=== PATIENT | male | born 1940 | race Caucasian/White ===

== ENCOUNTER 2018-04-16 07:30 | Day surgery (SDC) | payer MEDICARE, OTHER ==
[2018-04-16] MEDS ORDERED: Sodium Chloride 0.9% 10 ML Syringe FLUSH PRN (08:00)
--- NOTE | 2018-04-16 11:45 | OR ---
DATE OF PROCEDURE: 04/16/2018 POSTOPERATIVE CARE: Postoperative care will be provided mainly at the [address] [place] [address] [facility] in conjunction with [facility]. PREOPERATIVE DIAGNOSIS: Cataract, left eye. POSTOPERATIVE DIAGNOSIS: Cataract, left eye. PROCEDURE: Phacoemulsification with intraocular lens placement, left eye. ANESTHESIA: Topical and intracameral. ESTIMATED BLOOD LOSS: Minimal. COMPLICATIONS: None. PATHOLOGY SPECIMENS: None. SURGICAL FINDINGS: None. INDICATION FOR PROCEDURE: The patient is a 77-year-old male with history of a visually significant cataract in the left eye, which interfered with activities of daily living. This consisted of a nuclear sclerosis cataract. Following careful discussion of the risks, benefits and alternatives to cataract extraction with intraocular lens placement including blindness and , the patient elected to proceed, and informed, written consent was obtained prior to the procedure. DESCRIPTION OF THE PROCEDURE: The patient was previously identified, and a herbie placed above the left eye. All sources, including the patient, indicated that the left eye was the correct eye. The patient was subsequently taken to the operating room where standard monitors were applied. The patient was then prepped and draped in the usual sterile fashion for ophthalmic surgery. Attention was first directed at the 12 o'clock position where a paracentesis port was fashioned. Shugar solution followed by Viscoat was instilled into the eye. Attention was then directed to the 8:30 position where a triplanar incision was made in a near-clear manner using a keratome. A continuous capsulorrhexis was then made using a combination of the cystotome and Utrata forceps. Hydrodissection was achieved using a balanced salt solution, and the lens rotated nicely. Phacoemulsification was then done using a modified [id number] technique without complication. Phaco time was 6.95 CDE. The remaining cortex was removed using the irrigation/aspiration handpiece. Provisc was then instilled into the eye. A Technis lens, model CR1856, at 24.0 diopters was then placed in the capsular bag using an [place] injector. The remaining viscoelastic was removed using the irrigation/aspiration forceps. All wounds were then checked and found to be watertight. The lid speculum and drapes were removed. Maxitrol ointment was placed in the patient's left eye, and the eye was shielded. The patient tolerated the procedure well. The patient was instructed to follow up tomorrow. All needle and sponge counts were correct at the end of the procedure. There were no surgical findings. Hilary Hess MD /[id number]
== END 2018-04-16 09:30 | disposition home or self-care (01) ==
LOC: JP.SDS 07:30
PROVIDERS: ATTEND Ophthalmology
DX: H25.12 Age-related nuclear cataract, left eye (principal); F41.9 Anxiety disorder, unspecified; Z88.1 Allergy status to other antibiotic agents
CPT/HCPCS: 66984; J7050

== ENCOUNTER 2019-02-11 07:37 | Day surgery (SDC) | payer MEDICARE, OTHER ==
[2019-02-11] MEDS ORDERED: Lactated Ringers 1,000 ML IV SCH (08:15)
[2019-02-11] MEDS ORDERED: Sodium Chloride 0.9% 1,000 ML IV SCH (08:15)
[2019-02-11] MEDS ORDERED: fentaNYL 100 MCG/2 ML SDV ONE (08:25)
[2019-02-11] MEDS ORDERED: Propofol 200 MG/20 ML SDV ONE (08:25)
--- NOTE | 2019-02-11 11:09 | OR ---
DATE OF PROCEDURE: 02/11/2019 PROCEDURE: Colonoscopy. FINDINGS: Sigmoid colon polyp, completely removed using hot snare. COMPLICATIONS: None. LEAD CARPENTER: None. ANESTHESIA: MAC. PREOPERATIVE DIAGNOSIS: Positive Cologuard. POSTOPERATIVE DIAGNOSIS: Positive Cologuard. PROCEDURE IN DETAIL: Patient was placed in the left lateral decubitus position. Digital rectal exam was performed without abnormality. Scope was introduced and advanced atraumatically to the ileocecal valve. The scope was brought back to the ascending, transverse, descending colon, and retroflexed. The prep was marginal with solid and liquid stool remaining. In the sigmoid colon, an approximately 8 mm polyp was identified and completely removed using snare. No abnormalities on retroflection. The patient tolerated the procedure well. Of note, the patient and I did discuss the postprocedure ramifications of the poor colon prep. He has elected to not perform . Ari Elizondo MD /[id number]
== END 2019-02-11 11:00 | disposition home or self-care (01) ==
LOC: JP.SDS 07:37
PROVIDERS: ATTEND Surgery
DX: D12.5 Benign neoplasm of sigmoid colon (principal)
CPT/HCPCS: 45385; J2704; J3010; J7030; 88305

== ENCOUNTER 2021-02-17 13:54 | Inpatient (IN) | payer MEDICARE, OTHER ==
[2021-02-17] MEDS ORDERED: Albuterol 0.083% 2.5 MG/3 ML Neb Soln NEB ONE (15:08)
--- NOTE | 2021-02-17 15:08 | EDM.PDOC ---
<Peyton Lauren - Last Filed: 02/17/21 17:49> ED HPI GENERAL MEDICAL PROBLEM - General Chief Complaint: Respiratory Problem Stated Complaint: DIFFICULTY BREATHING, COUGHING Time Seen by Provider: 02/17/21 15:07 Source of Information: Reports: Patient History Limitations: Reports: No Limitations - History of Present Illness INITIAL COMMENTS - FREE TEXT/NARRATIVE: pt started having a cough about 2-3 days ago. He has been coughing alot and raising thick sputum. Onset: Gradual, Other ( started 3 days ago. ) Duration: Hour(s): Location: Reports: Chest Associated Symptoms: Reports: Cough, Shortness of Breath Lower Back Pain Score (Numeric/FACES): 7 - Related Data Allergies Allergy/AdvReac Type Severity Reaction Status Date / Time erythromycin base Allergy Unknown Cannot Verified 02/10/19 07:57 [Erythromycin Base] Remember Home Meds: Home Meds Gabapentin 900 mg PO TID 07/28/13 [History] Morphine Sulfate [Morphine Sulfate ER] 30 mg PO Q12H 07/28/13 [History] Zolpidem [Ambien] 10 mg PO BEDTIME PRN 10/29/13 [History] Carboxymethylcellulose Sodium [Refresh Plus 0.5%] 1 drop EYEBOTH ASDIRECTED 04/13/18 [History] Cholecalciferol (Vitamin D3) [Vitamin D3] 1,000 unit PO DAILY 04/13/18 [History] Moxifloxacin [Vigamox 0.5% Ophth Soln] 1 drop EYELF QID 04/13/18 [History] Multivitamin [Multiple Vitamins] 1 tab PO DAILY 04/13/18 [History] [place]-3 Fatty Acids [[place]-3] 100 mg PO DAILY 04/13/18 [History] Prednisolone Acetate/Pf [Prednisolone Acet 1% Eye Drop] 1 drop EYELF QID 04/13/18 [History] Vitamin E 100 units PO DAILY 04/13/18 [History] oxyCODONE 10 mg PO Q6H PRN 04/13/18 [History] Sennosides/Docusate Sodium [Senna-S] 1 tab PO DAILY 02/10/19 [History] Past Medical History HEENT History: Reports: Impaired Vision Gastrointestinal History: Reports: Cholelithiasis, Colon Polyp Genitourinary History: Reports: Renal Calculus Musculoskeletal History: Reports: Back Pain, Chronic, Fracture Neurological History: Reports: Concussion, Neuropathy, Peripheral Other Neuro History: LEFT LEG RADIATING PAIN FROM BACK - Infectious Disease History Infectious Disease History: Reports: Chicken Pox - Past Surgical History HEENT Surgical History: Reports: Cataract Surgery, Tonsillectomy GI Surgical History: Reports: Cholecystectomy, Colonoscopy, EGD Male Surgical History: Reports: Lithotripsy (ESWL) Neurological Surgical History: Reports: Other (See Below) Other Neurological Surgeries/Procedures: Internal lumbar stimulator Musculoskeletal Surgical History: Reports: Arthroscopic Knee, Other (See Below) Other Musculoskeletal Surgeries/Procedures:: nerve stimulator implanted in back for back and leg pain Social & Family History - Tobacco Use Tobacco Use Status *Q: Never Tobacco User - Caffeine Use Caffeine Use: Reports: None Other Caffeine Use: 3 CUPS ED ROS GENERAL - Review of Systems Review Of Systems: See Below Constitutional: Reports: Fatigue HEENT: Reports: No Symptoms Respiratory: Reports: Shortness of Breath, Cough, Other ( ALOT OF DIFFICULTY BREATHING LAST NITE. ) Cardiovascular: Reports: Other (PT HAS NOS CHEST PAIN. hE IS COUGHING UP A FAIR AMOUNT OF MUCOUS. ) Endocrine: Reports: No Symptoms GI/Abdominal: Reports: No Symptoms : Reports: No Symptoms Musculoskeletal: Reports: No Symptoms Skin: Reports: No Symptoms Neurological: Reports: No Symptoms Psychiatric: Reports: Anxiety ED EXAM, GENERAL - Physical Exam Exam: See Below Free Text/Narrative:: PT ARRIVED WITH A 3 DAY HISTORY OF BEING SOB AND COUGHING AND RASING ALOT OF SPUTUM. hE WAS VERY SOB LAST NITE. Exam Limited By: No Limitations General Appearance: Alert, Mild Distress, Other (PT DID HAVE O2 SATS IN THE MID 80S. ) Ears: Normal TMs Nose: Normal Inspection Throat/Mouth: Normal Inspection Head: Atraumatic Neck: Normal Inspection Respiratory/Chest: Decreased Breath Sounds, Other (O2 SATS IN THE MID 80S. ) Cardiovascular: Regular Rate, Rhythm GI/Abdominal: Soft, Non-Tender (Male) Exam: Deferred Rectal (Males) Exam: Deferred Back Exam: Normal Inspection Extremities: Normal Inspection, Other (NO SIG INCREASE IN SWELLING IN ANKLES. ) Neurological: Alert, Oriented, Normal Cognition Course - Re-Assessments/Exams Free Text/Narrative Re-Assessment/Exam: 02/17/21 17:55 PT IS ABLE TO MAINTIN O2 SATS WITH 2 LITERS OTHERWISE HIS SATS ARE IN THE MID 80S. hE HAS NO PREVIOS HISTORY OF RESP SYMPTOMS. hIS CHEST XRAY SHOWS A POSSIBLE SMALL INFILTRATE. hE HAD A NEG QUICK COVID tHE OTHER IS BEING RUN. hIS WBC IS LOW. hIS DDIMER HAS MILD ELEVATION. hIS CRP IS HIGH. pT HAS BEEN VACINATED FOR COVID. 02/17/21 17:57 Departure - Departure Disposition: Admitted As Inpatient 68 Clinical Impression: Bronchopneumonia due to bacteria, Hypoxia - Discharge Information Referrals: Erasmo Almaguer MD [Primary Care Provider] - Forms: ED Department Discharge Sepsis Event Note (ED) - Evaluation Sepsis Screening Result: No Definite Risk <Adriano Chaparro - Last Filed: 02/17/21 20:51> Course - Vital Signs Last Recorded V/S: Last Vital Signs Temp 36.8 C 02/17/21 14:22 Pulse 76 02/17/21 20:32 Resp 12 02/17/21 20:32 BP 145/67 H 02/17/21 20:32 Pulse Ox 90 L 02/17/21 20:32 - Orders/Labs/Meds Orders: Active Orders 24 hr Category Date Time Status RT Aerosol Therapy [RC] ASDIRECTED Care 02/17/21 15:08 Active Chest 2V [CR] Stat Exams 02/17/21 15:04 Taken Iopamidol [Isovue-370 (76%)] Med 02/17/21 19:15 Active 100 ml IV . DIRECTED Sodium Chloride 0.9% [Normal Saline] 100 ml Med 02/17/21 19:15 Active IV ASDIRECTED Isolation [COMM] Stat Oth 02/17/21 15:06 Ordered Isolation [COMM] Stat Oth 02/17/21 17:41 Ordered Medication Orders Sodium Chloride (Normal Saline) 100 mls @ 4 mls/sec IV ASDIRECTED DAVE Last Admin: 02/17/21 19:32 Dose: 4 mls/sec Documented by: HARESH Iopamidol (Iopamidol 755 Mg/Ml 100 Ml Bottle) 100 ml IV . DIRECTED DAVE Last Admin: 02/17/21 19:32 Dose: 100 ml Documented by: HARESH Labs: Laboratory Tests 02/17/21 02/17/21 02/17/21 Range/Units 15:19 15:19 15:19 WBC 3.9 L (4.5-11.0) K/uL RBC 4.31 (4.30-5.90) M/uL Hgb 13.2 (12.0-15.0) g/dL Hct 39.4 L (40.0-54.0) % MCV 91 (80-98) fL MCH 31 (27-31) pg MCHC 34 (32-36) % Plt Count 131 L (150-400) K/uL Neut % (Auto) 63.7 (36-66) % Lymph % (Auto) 18.8 L (24-44) % Hale % (Auto) 17.0 H (2-6) % Eos % (Auto) 0.0 L (2-4) % Baso % (Auto) 0.5 (0-1) % D-Dimer, Quantitative (0.0-500.0) ng/mL Sodium 135 L (140-148) mmol/L Potassium 4.7 (3.6-5.2) mmol/L Chloride 99 L (100-108) mmol/L Carbon Dioxide 28 (21-32) mmol/L Anion Gap 12.7 (5.0-14.0) mmol/L BUN 12 (7-18) mg/dL Creatinine 1.0 (0.8-1.3) mg/dL Est Cr Clr Drug Dosing 72.76 mL/min Estimated GFR (MDRD) > 60 (>60) Glucose 104 (74-106) mg/dL Calcium 8.1 L (8.5-10.1) mg/dL Total Bilirubin 0.6 (0.2-1.0) mg/dL AST 26 (15-37) U/L ALT 24 (12-78) U/L Alkaline Phosphatase 76 (46-116) U/L C-Reactive Protein (0.0-0.3) mg/dL NT-Pro-B Natriuret Pep 266 (5-450) pg/mL Total Protein 6.7 (6.4-8.2) g/dL Albumin 3.2 L (3.4-5.0) g/dL Globulin 3.5 (2.3-3.5) g/dL Albumin/Globulin Ratio 0.9 L (1.2-2.2) Procalcitonin ng/mL Influenza Type A RNA (NEGATIVE) RSV RNA (INAAT) (NEGATIVE) Influenza Type B RNA (NEGATIVE) SARS-CoV-2 RNA (OTF) (NEGATIVE) SARS CoV-2 RNA Rapid OTF 02/17/21 02/17/21 02/17/21 Range/Units 17:04 17:14 17:16 WBC (4.5-11.0) K/uL RBC (4.30-5.90) M/uL Hgb (12.0-15.0) g/dL Hct (40.0-54.0) % MCV (80-98) fL MCH (27-31) pg MCHC (32-36) % Plt Count (150-400) K/uL Neut % (Auto) (36-66) % Lymph % (Auto) (24-44) % Hale % (Auto) (2-6) % Eos % (Auto) (2-4) % Baso % (Auto) (0-1) % D-Dimer, Quantitative 747.76 H (0.0-500.0) ng/mL Sodium (140-148) mmol/L Potassium (3.6-5.2) mmol/L Chloride (100-108) mmol/L Carbon Dioxide (21-32) mmol/L Anion Gap (5.0-14.0) mmol/L BUN (7-18) mg/dL Creatinine (0.8-1.3) mg/dL Est Cr Clr Drug Dosing mL/min Estimated GFR (MDRD) (>60) Glucose (74-106) mg/dL Calcium (8.5-10.1) mg/dL Total Bilirubin (0.2-1.0) mg/dL AST (15-37) U/L ALT (12-78) U/L Alkaline Phosphatase (46-116) U/L C-Reactive Protein 3.11 H (0.0-0.3) mg/dL NT-Pro-B Natriuret Pep (5-450) pg/mL Total Protein (6.4-8.2) g/dL Albumin (3.4-5.0) g/dL Globulin (2.3-3.5) g/dL Albumin/Globulin Ratio (1.2-2.2) Procalcitonin ng/mL Influenza Type A RNA (NEGATIVE) RSV RNA (INAAT) (NEGATIVE) Influenza Type B RNA (NEGATIVE) SARS-CoV-2 RNA (OTF) (NEGATIVE) SARS CoV-2 RNA Rapid OTF Negative 02/17/21 02/17/21 Range/Units 17:43 18:05 WBC (4.5-11.0) K/uL RBC (4.30-5.90) M/uL Hgb (12.0-15.0) g/dL Hct (40.0-54.0) % MCV (80-98) fL MCH (27-31) pg MCHC (32-36) % Plt Count (150-400) K/uL Neut % (Auto) (36-66) % Lymph % (Auto) (24-44) % Hale % (Auto) (2-6) % Eos % (Auto) (2-4) % Baso % (Auto) (0-1) % D-Dimer, Quantitative (0.0-500.0) ng/mL Sodium (140-148) mmol/L Potassium (3.6-5.2) mmol/L Chloride (100-108) mmol/L Carbon Dioxide (21-32) mmol/L Anion Gap (5.0-14.0) mmol/L BUN (7-18) mg/dL Creatinine (0.8-1.3) mg/dL Est Cr Clr Drug Dosing mL/min Estimated GFR (MDRD) (>60) Glucose (74-106) mg/dL Calcium (8.5-10.1) mg/dL Total Bilirubin (0.2-1.0) mg/dL AST (15-37) U/L ALT (12-78) U/L Alkaline Phosphatase (46-116) U/L C-Reactive Protein (0.0-0.3) mg/dL NT-Pro-B Natriuret Pep (5-450) pg/mL Total Protein (6.4-8.2) g/dL Albumin (3.4-5.0) g/dL Globulin (2.3-3.5) g/dL Albumin/Globulin Ratio (1.2-2.2) Procalcitonin < 0.05 ng/mL Influenza Type A RNA Negative (NEGATIVE) RSV RNA (INAAT) Negative (NEGATIVE) Influenza Type B RNA Negative (NEGATIVE) SARS-CoV-2 RNA (OTF) Negative (NEGATIVE) SARS CoV-2 RNA Rapid OTF Meds: Medications Generic Name Dose Route Start Last Admin Trade Name Freq PRN Reason Stop Dose Admin Sodium Chloride 100 mls @ 4 mls/sec 02/17/21 19:15 02/17/21 19:32 Normal Saline IV 4 mls/sec ASDIRECTED DAVE Administration Iopamidol 100 ml 02/17/21 19:15 02/17/21 19:32 Iopamidol 755 Mg/Ml 100 Ml Bottle IV 100 ml . DIRECTED DAVE Administration Discontinued Medications Generic Name Dose Route Start Last Admin Trade Name Mary PRN Reason Stop Dose Admin Albuterol 2.5 mg 02/17/21 15:08 02/17/21 15:24 Albuterol 0.083% 2.5 Mg/3 Ml Neb Soln NEB 02/17/21 15:09 2.5 mg ONETIME ONE Administration Morphine Sulfate 30 mg 02/17/21 18:19 02/17/21 18:31 Morphine 15 Mg Tab PO 02/17/21 18:20 30 mg ONETIME STA Administration Oxycodone HCl 10 mg 02/17/21 17:42 02/17/21 18:07 Oxycodone 5 Mg Tab PO 02/17/21 17:43 10 mg ONETIME ONE Administration - Radiology Interpretation Free Text/Narrative:: CT angiogram of the chest was reviewed as well as the report. There is bibasilar bronchial wall thickening in the bases with pulmonary infiltrates versus atelectasis. This is consistent with an acute bronchopneumonia. - Re-Assessments/Exams Free Text/Narrative Re-Assessment/Exam: 02/17/21 19:40 second Covid test is negative which is the quadrivalent Covid test. With elevated D-dimer, we will proceed with a CT angiogram of the chest to evaluate for pulmonary emboli. 02/17/21 20:49 CT angiogram of the chest shows bibasilar pulmonary infiltrates and thickening of the bronchials consistent with acute bronchopneumonia. We will start patient on antibiotics. He has continued to require oxygen to maintain saturations above 90% so was likely going to need hospitalization until this improves. We will initiate antibiotics with Levaquin 750 mg IV. I will also obtain blood cultures. I discussed the case with Patito Vences CNP who will arrange for the patient to be admitted. Departure - Departure Time of Disposition: 20:49 Sepsis Event Note (ED) - Focused Exam Vital Signs: Vital Signs Temp Pulse Resp BP Pulse Ox 02/17/21 20:32 76 12 145/67 H 90 L 02/17/21 18:58 75 158/99 H 91 L 02/17/21 17:11 77 90 L 02/17/21 15:42 72 16 131/82 87 L 02/17/21 14:22 36.8 C 75 15 157/78 H 91 L - My Orders Last 24 Hours: My Active Orders 02/17/21 19:15 Iopamidol [Isovue-370 (76%)] 100 ml IV . DIRECTED Sodium Chloride 0.9% [Normal Saline] 100 ml IV ASDIRECTED - Assessment/Plan Last 24 Hours: My Active Orders 02/17/21 19:15 Iopamidol [Isovue-370 (76%)] 100 ml IV . DIRECTED Sodium Chloride 0.9% [Normal Saline] 100 ml IV ASDIRECTED
[2021-02-17] MEDS ORDERED: oxyCODONE 5 MG Tab PO ONE (17:42)
[2021-02-17] MEDS ORDERED: Morphine 15 MG Tab PO STA (18:19)
[2021-02-17 18:24] LABS: CORONAVIRUS COVID-19 NAA NEGATIVE (NEGATIVE)
[2021-02-17] MEDS ORDERED: Sodium Chloride 0.9% 100 ML IV SCH (19:15)
[2021-02-17] MEDS ORDERED: Iopamidol 755 Mg/ML 100 ML Bottle IV SCH (19:15)
--- NOTE | 2021-02-17 20:36 | CRLCT ---
For Patients: As a result of the Cures Act, medical imaging exams and procedure reports are released immediately into your electronic medical record. You may view this report before your referring provider. If you have questions, please contact your health care provider. Indication: Hypoxia dyspnea Technique: Contrast-enhanced CT PE with 100 mL Isovue 370 Comparison: No comparison Findings: Normal caliber thoracic aorta. No pulmonary emboli. Heart size normal no mediastinal or hilar adenopathy. No pericardial effusion. Tiny pleural effusions. Basilar atelectasis bronchial thickening mild patchy opacities right lower lobe could reflect atelectasis or infiltrate. Moderate hiatal hernia. Fatty liver. Low-density lesions in the left hepatic lobe probably reflect cysts. Cholecystectomy. Biliary dilatation. Trace amount of air in the left hepatic lobe probably reflecting pneumobilia. Impression: 1. No pulmonary emboli. 2. Minimal right basilar patchy opacities could represent atelectasis or infiltrate. Bibasilar bronchial wall thickening Please note that all CT scans at this facility use dose modulation, iterative reconstruction, and/or weight-based dosing when appropriate to reduce radiation dose to as low as reasonably achievable. Dictated by Brynn Levin MD @ 02/17/2021 8:33:[address] Brynn Levin @ Feb 17 2021 8:33PM
[2021-02-17] MEDS ORDERED: Levofloxacin/Dextrose 5%-Water 750 MG in Premix Bag 1 BAG IV ONE (21:02)
--- NOTE | 2021-02-17 21:32 | CRLCR ---
For Patients: As a result of the Cures Act, medical imaging exams and procedure reports are released immediately into your electronic medical record. You may view this report before your referring provider. If you have questions, please contact your health care provider. INDICATION: Cough, shortness of breath TECHNIQUE: Chest 2 views. COMPARISON: Chest x-ray 10/28/2013 FINDINGS: The heart is normal in size. The pulmonary vasculature is within normal limits. The lungs are clear without focal consolidation, pleural effusion or pneumothorax. There are mild degenerative changes of the thoracic spine. There is a nerve stimulator device which terminates over the mid thoracic spine. IMPRESSION: No acute process. Dictated by Raquel Vargas MD @ 02/17/2021 9:31:00 PM Dictated by: Raquel Vargas MD @ 02/17/2021 21:31:11 (Electronically Signed)
--- NOTE | 2021-02-17 22:58 | PCM.HP.2 ---
H&P History of Present Illness - General Date of Service: 02/17/21 Admit Problem/Dx: Admission Diagnosis/Problem Admission Diagnosis/Problem Pneumonia Source of Information: Patient, Provider History Limitations: Reports: No Limitations - History of Present Illness Initial Comments - Free Text/Narative: chief complaint: difficulty breathing, shortness of breath. This is a 80 year old male presents to the ER with shortness of breath. Oxygen saturation upon arrival were low 80% on room air. Now oxygen levels are in the low 90% with 2 liter NC. Onset of symptoms for the past 2 to 3 days. chills, shortness of breath, fatigue, lack of appetite- last meal was last night. Onset of Symptoms: Reports: Gradual Symptom Onset Date: 02/14/21 Duration of Symptoms: Reports: Getting Worse Location: Reports: Generalized Quality: Reports: Other (shortness of breath, denies painful cough) Severity: Severe Improves with: Reports: Other (oxygen therapy) Worsens with: Reports: None Associated Symptoms: Reports: Cough, Fever/Chills (chills without fever), Loss of Appetite, Malaise, Shortness of Breath, Weakness Lower Back Pain Score (Numeric/FACES): 7 - Related Data Allergies/Adverse Reactions: Allergies Allergy/AdvReac Type Severity Reaction Status Date / Time erythromycin base Allergy Unknown Cannot Verified 02/10/19 07:57 [Erythromycin Base] Remember Home Medications: Home Meds Gabapentin 900 mg PO TID 07/28/13 [History] Morphine Sulfate [Morphine Sulfate ER] 30 mg PO Q12H 07/28/13 [History] Zolpidem [Ambien] 10 mg PO BEDTIME PRN 10/29/13 [History] Carboxymethylcellulose Sodium [Refresh Plus 0.5%] 1 drop EYEBOTH ASDIRECTED [History] Cholecalciferol (Vitamin D3) [Vitamin D3] 1,000 unit PO DAILY 04/13/18 [History] Moxifloxacin [Vigamox 0.5% Ophth Soln] 1 drop EYELF QID 04/13/18 [History] Multivitamin [Multiple Vitamins] 1 tab PO DAILY 04/13/18 [History] Schofield-3 Fatty Acids [Schofield-3] 100 mg PO DAILY 04/13/18 [History] Prednisolone Acetate/Pf [Prednisolone Acet 1% Eye Drop] 1 drop EYELF QID 04/13/18 [History] Vitamin E 100 units PO DAILY 04/13/18 [History] oxyCODONE 10 mg PO Q6H PRN 04/13/18 [History] Sennosides/Docusate Sodium [Senna-S] 1 tab PO DAILY 02/10/19 [History] Past Medical History HEENT History: Reports: Impaired Vision Gastrointestinal History: Reports: Cholelithiasis, Colon Polyp Genitourinary History: Reports: Renal Calculus Musculoskeletal History: Reports: Back Pain, Chronic, Fracture Neurological History: Reports: Concussion, Neuropathy, Peripheral Other Neuro History: LEFT LEG RADIATING PAIN FROM BACK - Infectious Disease History Infectious Disease History: Reports: Chicken Pox - Past Surgical History HEENT Surgical History: Reports: Cataract Surgery, Tonsillectomy GI Surgical History: Reports: Cholecystectomy, Colonoscopy, EGD Male Surgical History: Reports: Lithotripsy (ESWL) Neurological Surgical History: Reports: Other (See Below) Other Neurological Surgeries/Procedures: Internal lumbar stimulator Musculoskeletal Surgical History: Reports: Arthroscopic Knee, Other (See Below) Other Musculoskeletal Surgeries/Procedures:: nerve stimulator implanted in back for back and leg pain Social & Family History - Tobacco Use Tobacco Use Status *Q: Never Tobacco User - Caffeine Use Caffeine Use: Reports: None Other Caffeine Use: 3 CUPS - Alcohol Use Alcohol Use History: Yes Alcohol Use in Last Twelve Months: No Alcohol Use Comment: 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 has 3 adult children, retired Teacher/Rental Clerk) H&P Review of Systems - Review of Systems: Review Of Systems: See Below General: Reports: Chills, Malaise, Weakness, Decreased Appetite, Other (neat and well groomed, pleasant, no distress at this time.) HEENT: Reports: No Symptoms Pulmonary: Reports: Shortness of Breath, Cough (non-productive) Cardiovascular: Reports: Dyspnea on Exertion Gastrointestinal: Reports: No Symptoms Genitourinary: Reports: No Symptoms Musculoskeletal: Reports: Neck Pain (chronic), Back Pain (chronic), Other (internal lumbar stimular.) Skin: Reports: No Symptoms Psychiatric: Reports: No Symptoms Neurological: Reports: No Symptoms Hematologic/Lymphatic: Reports: No Symptoms Immunologic: Reports: No Symptoms Exam - Exam Exam: See Below - Vital Signs Vital Signs: Last Vital Signs Temp 98.3 F 02/17/21 14:22 Pulse 68 02/17/21 21:31 Resp 18 02/17/21 21:31 BP 131/61 02/17/21 21:31 Pulse Ox 93 L 02/17/21 21:31 Weight: 209 lb 3.499 oz - Exam Quality Assessment: Supplemental Oxygen, DVT Prophylaxis General: Alert, Oriented, Cooperative, Other (neat and well groomed, pleasant, no distress noted) HEENT: PERRLA, Hearing Intact, Mucosa Moist & [place], Nares Patent, Normal Nasal Septum, Posterior Pharynx Clear, Conjunctiva Clear, EOMI, EACs Clear, TMs Clear Neck: Supple, Trachea Midline, 2 Lungs: Clear to Auscultation, Normal Respiratory Effort, Decreased Breath Sounds (bilateral at bases) Cardiovascular: Regular Rate, Regular Rhythm, Normal S1, Normal S2 GI/Abdominal Exam: Normal Bowel Sounds, Soft, Non-Tender, No Organomegaly, No Distention, No Abnormal Bruit, No Mass (Male) Exam: Deferred Rectal (Males) Exam: Deferred Back Exam: Normal Inspection, Full Range of Motion Extremities: Normal Inspection, Normal Range of Motion, Non-Tender, No Pedal Edema, Normal Capillary Refill Peripheral Pulses: 2+: Radial (L), Radial (R), Dorsalis Pedis (L), Dorsalis Pedis (R) Skin: Warm, Dry, Intact Neurological: Cranial Nerves Intact, Reflexes Equal Bilateral Neuro Extensive - Mental Status: Alert, Oriented x3, Normal Mood/Affect, Normal Cognition Neuro Extensive - Motor, Sensory, Reflexes: CN II-XII Intact, Normal Gait, Normal Reflexes Psychiatric: Alert, Normal Affect, Normal Mood - Patient Data Lab Results Last 24 hrs: Laboratory Results - last 24 hr 02/17/21 02/17/21 02/17/21 Range/Units 15:19 15:19 15:19 WBC 3.9 L (4.5-11.0) K/uL RBC 4.31 (4.30-5.90) M/uL Hgb 13.2 (12.0-15.0) g/dL Hct 39.4 L (40.0-54.0) % MCV 91 (80-98) fL MCH 31 (27-31) pg MCHC 34 (32-36) % Plt Count 131 L (150-400) K/uL Neut % (Auto) 63.7 (36-66) % Lymph % (Auto) 18.8 L (24-44) % [place] % (Auto) 17.0 H (2-6) % Eos % (Auto) 0.0 L (2-4) % Baso % (Auto) 0.5 (0-1) % D-Dimer, Quantitative (0.0-500.0) ng/mL Sodium 135 L (140-148) mmol/L Potassium 4.7 (3.6-5.2) mmol/L Chloride 99 L (100-108) mmol/L Carbon Dioxide 28 (21-32) mmol/L Anion Gap 12.7 (5.0-14.0) mmol/L BUN 12 (7-18) mg/dL Creatinine 1.0 (0.8-1.3) mg/dL Est Cr Clr Drug Dosing 72.76 mL/min Estimated GFR (MDRD) > 60 (>60) Glucose 104 (74-106) mg/dL Calcium 8.1 L (8.5-10.1) mg/dL Total Bilirubin 0.6 (0.2-1.0) mg/dL AST 26 (15-37) U/L ALT 24 (12-78) U/L Alkaline Phosphatase 76 (46-116) U/L C-Reactive Protein (0.0-0.3) mg/dL NT-Pro-B Natriuret Pep 266 (5-450) pg/mL Total Protein 6.7 (6.4-8.2) g/dL Albumin 3.2 L (3.4-5.0) g/dL Globulin 3.5 (2.3-3.5) g/dL Albumin/Globulin Ratio 0.9 L (1.2-2.2) Procalcitonin ng/mL Influenza Type A RNA (NEGATIVE) RSV RNA (INAAT) (NEGATIVE) Influenza Type B RNA (NEGATIVE) SARS-CoV-2 RNA (OTF) (NEGATIVE) SARS CoV-2 RNA Rapid OTF 02/17/21 02/17/21 02/17/21 Range/Units 17:04 17:14 17:16 WBC (4.5-11.0) K/uL RBC (4.30-5.90) M/uL Hgb (12.0-15.0) g/dL Hct (40.0-54.0) % MCV (80-98) fL MCH (27-31) pg MCHC (32-36) % Plt Count (150-400) K/uL Neut % (Auto) (36-66) % Lymph % (Auto) (24-44) % [place] % (Auto) (2-6) % Eos % (Auto) (2-4) % Baso % (Auto) (0-1) % D-Dimer, Quantitative 747.76 H (0.0-500.0) ng/mL Sodium (140-148) mmol/L Potassium (3.6-5.2) mmol/L Chloride (100-108) mmol/L Carbon Dioxide (21-32) mmol/L Anion Gap (5.0-14.0) mmol/L BUN (7-18) mg/dL Creatinine (0.8-1.3) mg/dL Est Cr Clr Drug Dosing mL/min Estimated GFR (MDRD) (>60) Glucose (74-106) mg/dL Calcium (8.5-10.1) mg/dL Total Bilirubin (0.2-1.0) mg/dL AST (15-37) U/L ALT (12-78) U/L Alkaline Phosphatase (46-116) U/L C-Reactive Protein 3.11 H (0.0-0.3) mg/dL NT-Pro-B Natriuret Pep (5-450) pg/mL Total Protein (6.4-8.2) g/dL Albumin (3.4-5.0) g/dL Globulin (2.3-3.5) g/dL Albumin/Globulin Ratio (1.2-2.2) Procalcitonin ng/mL Influenza Type A RNA (NEGATIVE) RSV RNA (INAAT) (NEGATIVE) Influenza Type B RNA (NEGATIVE) SARS-CoV-2 RNA (OTF) (NEGATIVE) SARS CoV-2 RNA Rapid OTF Negative 02/17/21 02/17/21 Range/Units 17:43 18:05 WBC (4.5-11.0) K/uL RBC (4.30-5.90) M/uL Hgb (12.0-15.0) g/dL Hct (40.0-54.0) % MCV (80-98) fL MCH (27-31) pg MCHC (32-36) % Plt Count (150-400) K/uL Neut % (Auto) (36-66) % Lymph % (Auto) (24-44) % [place] % (Auto) (2-6) % Eos % (Auto) (2-4) % Baso % (Auto) (0-1) % D-Dimer, Quantitative (0.0-500.0) ng/mL Sodium (140-148) mmol/L Potassium (3.6-5.2) mmol/L Chloride (100-108) mmol/L Carbon Dioxide (21-32) mmol/L Anion Gap (5.0-14.0) mmol/L BUN (7-18) mg/dL Creatinine (0.8-1.3) mg/dL Est Cr Clr Drug Dosing mL/min Estimated GFR (MDRD) (>60) Glucose (74-106) mg/dL Calcium (8.5-10.1) mg/dL Total Bilirubin (0.2-1.0) mg/dL AST (15-37) U/L ALT (12-78) U/L Alkaline Phosphatase (46-116) U/L C-Reactive Protein (0.0-0.3) mg/dL NT-Pro-B Natriuret Pep (5-450) pg/mL Total Protein (6.4-8.2) g/dL Albumin (3.4-5.0) g/dL Globulin (2.3-3.5) g/dL Albumin/Globulin Ratio (1.2-2.2) Procalcitonin < 0.05 ng/mL Influenza Type A RNA Negative (NEGATIVE) RSV RNA (INAAT) Negative (NEGATIVE) Influenza Type B RNA Negative (NEGATIVE) SARS-CoV-2 RNA (OTF) Negative (NEGATIVE) SARS CoV-2 RNA Rapid OTF Result Diagrams: 02/17/21 15:19 02/17/21 15:19 Sepsis Event Note - Evaluation Sepsis Screening Result: No Definite Risk - Focused Exam Vital Signs: Vital Signs Temp Pulse Resp BP Pulse Ox 02/17/21 21:31 68 18 131/61 93 L 02/17/21 21:01 69 13 139/70 94 L 02/17/21 20:32 76 12 145/67 H 90 L 02/17/21 18:58 75 158/99 H 91 L 02/17/21 17:11 77 90 L 02/17/21 15:42 72 16 131/82 87 L 02/17/21 14:22 98.3 F 75 15 157/78 H 91 L - Problem List (1) Bronchopneumonia due to bacteria SNOMED Code(s): 56625325149481443 ICD Code: J15.9 - UNSPECIFIED BACTERIAL PNEUMONIA Status: Acute Priority: High Current Visit: Yes (2) Chronic neck and back pain SNOMED Code(s): 17305768 ICD Code: M54.2 - CERVICALGIA; M54.9 - DORSALGIA, UNSPECIFIED; G89.29 - OTHER CHRONIC PAIN Status: Acute Priority: High Current Visit: Yes (3) Insomnia SNOMED Code(s): 439184770 ICD Code: G47.00 - INSOMNIA, UNSPECIFIED Status: Acute Priority: Low Current Visit: Yes Qualifiers: Insomnia type: unspecified Qualified Code(s): G47.00 - Insomnia, unspecified Problem List Initiated/Reviewed/Updated: Yes Orders Last 24hrs: Active Orders 24 hr Category Date Time Status Patient Status Manage Transfer [TRANSFER] Routine ADT 02/17/21 22:03 Active RT Aerosol Therapy [RC] ASDIRECTED Care 02/17/21 15:08 Active CULTURE BLOOD [BC] Urgent Lab 02/17/21 21:05 Received CULTURE BLOOD [BC] Urgent Lab 02/17/21 21:15 Received Iopamidol [Isovue-370 (76%)] Med 02/17/21 19:15 Active 100 ml IV . DIRECTED Sodium Chloride 0.9% [Normal Saline] 100 ml Med 02/17/21 19:15 Active IV ASDIRECTED Blood Culture x2 Reflex Set [OM.PC] Urgent Oth 02/17/21 20:51 Ordered Isolation [COMM] Stat Oth 02/17/21 15:06 Ordered Isolation [COMM] Stat Oth 02/17/21 17:41 Ordered Resuscitation Status Routine Resus Stat 02/17/21 22:35 Ordered Medication Orders Sodium Chloride (Normal Saline) 100 mls @ 4 mls/sec IV ASDIRECTED DAVE Last Admin: 02/17/21 19:32 Dose: 4 mls/sec Documented by: HARESH Iopamidol (Iopamidol 755 Mg/Ml 100 Ml Bottle) 100 ml IV . DIRECTED DAVE Last Admin: 02/17/21 19:32 Dose: 100 ml Documented by: HARESH Assessment/Plan Comment:: Assessment/Plan Comment:: ASSESSMENT AND PLAN - Right lower lobe pneumonia-complicated by acute hypoxia. No evidence for sepsis. He reports cough started about 2-3 days ago and has progressively gotten worse. He arrived in the ER with oxygen saturation of low 80's on room air. now at low 90% with 2 liter NC. Cough present without sputum. Weakness with poor appetite- last meal last night . vaccinated for Covid, testing for Covid is negative. ER work up with chest x ray and CT chest angio- right infiltrates and bilateral at the bases. negative for PE. Labs CBC wbc 3.9, hgb 13.2, hct 39.4. Chemistries- Na 135, K 4.7, cl 99, anion gap 12.7, bun 12, cr 1.0, co2 28. gfr >60, CRP 3.11, Procalcitonin <0.05, negative flu, RSV & COVID. blood cultures x 2 pending, IV antibiotic started in the ER. -Antibiotic coverage with IV Ceftriaxone 1 gram daily and IV Levofloxacin 750 mg daily -IV Solumedrol 40 mg every 6 hours -Albuterol and DuoNeb as needed for wheezing and shortness of breath -Supplement oxygen -Sputum culture ordered -blood cultures x2 pending -am labs CBC, BMP Chronic Back Pain-ordered outpatient medication, has internal lumbar stimulator, noted to be on the right lateral abdomen. -Gabapentin 900 mg three times a day -Morphine Sulphate 40 mg po every 12 hours -Oxycodone 10 mg every 6 hours as needed Insomnia -Ambien 10 mg at bedtime Maintenance issues - - DVT prophylaxis -Lovenox 30 mg subcut daily - GI prophylaxis -PPI - IV Protonix 40 mg at bedtime - Nutrition -regular - Hyatt catheter -not indicated CODE STATUS -FULL Admission justification -this patient will be admitted for inpatient services and is medically appropriate meeting medical necessity for inpatient admission as outlined in my documentation. I reasonably expect the patient will require inpatient services that span a period time over 2 midnights. I reasonably expect this patient to be discharged or transferred within 96 hours [facility]. Disposition -I would anticipate discharge back to home with after the hospital stay Primary care physician - Dr. Almaguer, [facility] Yakov Alvarado M.D. - Mortality Measure Prognosis:: Good - Mortality Measure Prognosis:: Good
[2021-02-17] MEDS ORDERED: Bisacodyl 5 MG Tab PO PRN (23:30)
[2021-02-17] MEDS ORDERED: Pantoprazole 40 MG Vial IV SCH (23:30)
[2021-02-17] MEDS ORDERED: Morphine 2 MG/ML SYRINGE IVPUSH PRN (23:30)
[2021-02-17] MEDS ORDERED: cefTRIAXone 1 GM in Sodium Chloride 0.9% 50 ML IV ONE (23:30)
[2021-02-17] MEDS ORDERED: Ondansetron 4 MG Tab.DIS PO PRN (23:30)
[2021-02-17] MEDS ORDERED: Albuterol/Ipratropium 3.0-0.5 MG/3 ML Neb Soln NEB PRN (23:30)
[2021-02-17] MEDS ORDERED: Docusate Sodium 100 MG Cap PO PRN (23:30)
[2021-02-17] MEDS ORDERED: Acetaminophen 325 MG Tab PO PRN (23:30)
[2021-02-17] MEDS ORDERED: methylPREDNISolone Sodium Succinate 40 MG/1 ML SDV IVPUSH ONE (23:30)
[2021-02-17] MEDS ORDERED: Albuterol 0.083% 2.5 MG/3 ML Neb Soln NEB PRN (23:30)
[2021-02-17] MEDS ORDERED: oxyCODONE 5 MG Tab PO PRN (23:41)
[2021-02-17] MEDS ORDERED: Zolpidem 5 MG Tab PO PRN (23:43)
[2021-02-17] MEDS ORDERED: Hypromellose 0.3% Ophth Soln 15 ML Bottle EYEBOTH SCH (23:45)
[2021-02-17] MEDS: Morphine 30 MG Tab.ER PO SCH (23:53)
[2021-02-18] MEDS: Gabapentin 300 MG Cap PO SCH ×2 (00:28→08:59)
[2021-02-18] MEDS: Sodium Chloride 0.9% 1,000 ML IV SCH ×2 (00:28→08:45)
[2021-02-18] MEDS ORDERED: methylPREDNISolone Sodium Succinate 40 MG/1 ML SDV IVPUSH SCH (06:00)
[2021-02-18] MEDS ORDERED: prednisoLONE Acetate 1% Ophth Susp 5 ML Bottle EYELF SCH ×2 (06:00→10:00)
[2021-02-18] MEDS ORDERED: Hypromellose 0.3% Ophth Soln 15 ML Bottle EYEBOTH PRN (07:28)
[2021-02-18] MEDS: Morphine 30 MG Tab.ER PO SCH (08:58)
[2021-02-18] MEDS ORDERED: Enoxaparin 40 MG/0.4 ML Syringe SUBCUT SCH (09:00)
--- NOTE | 2021-02-18 10:55 | PCM.DCSUM1 ---
Discharge Summary - Hospital Course Brief History: 80-year-old male with history of chronic neck pain who presented with several days of progressive shortness of breath and cough. He was admitted for management of a right lower lobe pneumonia with acute respiratory failure with hypoxia. Diagnosis: Stroke: No - Discharge Data Discharge Date: 02/18/21 Discharge Disposition: Home, Self-Care 01 Condition: Good - Referral to Home Health Primary Care Physician: Erasmo Almaguer MD - Discharge Diagnosis/Problem(s) (1) Right lower lobe pneumonia SNOMED Code(s): 271203386 ICD Code: J18.9 - PNEUMONIA, UNSPECIFIED ORGANISM Status: Acute Current Visit: Yes Qualifiers: Pneumonia type: due to unspecified organism Qualified Code(s): J18.9 - Pneumonia, unspecified organism (2) Acute respiratory failure with hypoxia SNOMED Code(s): 48241809, 350061162 ICD Code: J96.01 - ACUTE RESPIRATORY FAILURE WITH HYPOXIA Status: Acute Current Visit: Yes - Patient Summary/Data Hospital Course: Dat presented to the emergency room with several days of progressive cough and shortness of breath. Initial work-up revealed a mild leukopenia and thrombocytopenia. Chest x-ray did not suggest pneumonia but the patient was noted to be hypoxic. His D-dimer was mildly elevated and this prompted a CT pulmonary angiogram. There is no evidence for pulmonary embolism but the scan did document a small patchy right lower lung pneumonia. Patient was started on antibiotics for presumed pneumonia and he was admitted to the hospital for further management because of his hypoxia. Overnight following admission the patient did show fairly impressive improvement. We have been able to wean him off the supplemental oxygen. He has been up and walking around and feels a little short of breath but otherwise okay. Strength and appetite are okay. He wishes to go home at this time since he is feeling better. Since he is off the supplemental oxygen I think this is safe. His infection could be viral but could also be bacterial. He did have 2 different tests for COVID-19 and these were both negative. Since he has improved with the antibiotic therapy the plan is for him to continue this for a few more days after hospital discharge. He will follow up if symptoms do not continue to get better or if they get worse. - Patient Instructions Diet: Regular Diet as Tolerated Activity: As Tolerated Showering/Bathing: May Shower Other/Special Instructions: 1. You were in the hospital for management of right lower lobe pneumonia complicated by acute respiratory failure with hypoxia. Your condition has been improving with cares provided in the hospital. I do recommend additional antibiotic therapy with levofloxacin. Please take levofloxacin 750 mg once daily around bedtime for 5 days. Your first dose outside of the hospital will be due tonight. 2. Continue your usual home medications as previously prescribed. 3. Follow up as needed after the hospital stay - Discharge Plan *PRESCRIPTION DRUG MONITORING PROGRAM REVIEWED*: Not Applicable *COPY OF PRESCRIPTION DRUG MONITORING REPORT IN PATIENT ROCIO: Not Applicable Prescriptions/Med Rec: Levofloxacin 750 mg PO BEDTIME #5 tablet Home Medications: Home Meds Gabapentin 900 mg PO TID 07/28/13 [History] Morphine Sulfate [Morphine Sulfate ER] 30 mg PO Q12H 07/28/13 [History] Zolpidem [Ambien] 10 mg PO BEDTIME PRN 10/29/13 [History] Carboxymethylcellulose Sodium [Refresh Plus 0.5%] 1 drop EYEBOTH ASDIRECTED 04/13/18 [History] Cholecalciferol (Vitamin D3) [Vitamin D3] 1,000 unit PO DAILY 04/13/18 [History] Moxifloxacin [Vigamox 0.5% Ophth Soln] 1 drop EYELF QID 04/13/18 [History] Multivitamin [Multiple Vitamins] 1 tab PO DAILY 04/13/18 [History] [place]-3 Fatty Acids [[place]-3] 100 mg PO DAILY 04/13/18 [History] Prednisolone Acetate/Pf [Prednisolone Acet 1% Eye Drop] 1 drop EYELF QID 04/13/18 [History] Vitamin E 100 units PO DAILY 04/13/18 [History] oxyCODONE 10 mg PO Q6H PRN 04/13/18 [History] Sennosides/Docusate Sodium [Senna-S] 1 tab PO DAILY 02/10/19 [History] Levofloxacin 750 mg PO BEDTIME #5 tablet 02/18/21 [Rx] Oxygen Therapy Mode: Room Air Patient Handouts: Levofloxacin tablets, Community-Acquired Pneumonia, Adult, [id number] Referrals: Erasmo Almaguer MD [Primary Care Provider] - (f/u as needed after the hospital stay ) - Discharge Summary/Plan Comment DC Time >30 min.: No - Patient Data Vitals - Most Recent: Last Vital Signs Temp 36.1 C 02/18/21 08:47 Pulse 66 02/18/21 08:47 Resp 20 02/18/21 08:47 BP 137/68 02/18/21 08:47 Pulse Ox 95 02/18/21 08:47 Weight - Most Recent: 94.801 kg I&O - Last 24 hours: Intake & Output 02/17/21 02/18/21 02/18/21 22:59 06:59 14:59 Intake Total 300 Output Total 400 400 Balance -100 -400 Lab Results - Last 24 hrs: Laboratory Results - last 24 hr 02/17/21 02/17/21 02/17/21 Range/Units 15:19 15:19 15:19 WBC 3.9 L (4.5-11.0) K/uL RBC 4.31 (4.30-5.90) M/uL Hgb 13.2 (12.0-15.0) g/dL Hct 39.4 L (40.0-54.0) % MCV 91 (80-98) fL MCH 31 (27-31) pg MCHC 34 (32-36) % Plt Count 131 L (150-400) K/uL Neut % (Auto) 63.7 (36-66) % Lymph % (Auto) 18.8 L (24-44) % [place] % (Auto) 17.0 H (2-6) % Eos % (Auto) 0.0 L (2-4) % Baso % (Auto) 0.5 (0-1) % D-Dimer, Quantitative (0.0-500.0) ng/mL Sodium 135 L (140-148) mmol/L Potassium 4.7 (3.6-5.2) mmol/L Chloride 99 L (100-108) mmol/L Carbon Dioxide 28 (21-32) mmol/L Anion Gap 12.7 (5.0-14.0) mmol/L BUN 12 (7-18) mg/dL Creatinine 1.0 (0.8-1.3) mg/dL Est Cr Clr Drug Dosing 72.76 mL/min Estimated GFR (MDRD) > 60 (>60) Glucose 104 (74-106) mg/dL Calcium 8.1 L (8.5-10.1) mg/dL Total Bilirubin 0.6 (0.2-1.0) mg/dL AST 26 (15-37) U/L ALT 24 (12-78) U/L Alkaline Phosphatase 76 (46-116) U/L C-Reactive Protein (0.0-0.3) mg/dL NT-Pro-B Natriuret Pep 266 (5-450) pg/mL Total Protein 6.7 (6.4-8.2) g/dL Albumin 3.2 L (3.4-5.0) g/dL Globulin 3.5 (2.3-3.5) g/dL Albumin/Globulin Ratio 0.9 L (1.2-2.2) Procalcitonin ng/mL Influenza Type A RNA (NEGATIVE) RSV RNA (INAAT) (NEGATIVE) Influenza Type B RNA (NEGATIVE) SARS-CoV-2 RNA (OTF) (NEGATIVE) SARS CoV-2 RNA Rapid OTF 02/17/21 02/17/21 02/17/21 Range/Units 17:04 17:14 17:16 WBC (4.5-11.0) K/uL RBC (4.30-5.90) M/uL Hgb (12.0-15.0) g/dL Hct (40.0-54.0) % MCV (80-98) fL MCH (27-31) pg MCHC (32-36) % Plt Count (150-400) K/uL Neut % (Auto) (36-66) % Lymph % (Auto) (24-44) % [place] % (Auto) (2-6) % Eos % (Auto) (2-4) % Baso % (Auto) (0-1) % D-Dimer, Quantitative 747.76 H (0.0-500.0) ng/mL Sodium (140-148) mmol/L Potassium (3.6-5.2) mmol/L Chloride (100-108) mmol/L Carbon Dioxide (21-32) mmol/L Anion Gap (5.0-14.0) mmol/L BUN (7-18) mg/dL Creatinine (0.8-1.3) mg/dL Est Cr Clr Drug Dosing mL/min Estimated GFR (MDRD) (>60) Glucose (74-106) mg/dL Calcium (8.5-10.1) mg/dL Total Bilirubin (0.2-1.0) mg/dL AST (15-37) U/L ALT (12-78) U/L Alkaline Phosphatase (46-116) U/L C-Reactive Protein 3.11 H (0.0-0.3) mg/dL NT-Pro-B Natriuret Pep (5-450) pg/mL Total Protein (6.4-8.2) g/dL Albumin (3.4-5.0) g/dL Globulin (2.3-3.5) g/dL Albumin/Globulin Ratio (1.2-2.2) Procalcitonin ng/mL Influenza Type A RNA (NEGATIVE) RSV RNA (INAAT) (NEGATIVE) Influenza Type B RNA (NEGATIVE) SARS-CoV-2 RNA (OTF) (NEGATIVE) SARS CoV-2 RNA Rapid OTF Negative 02/17/21 02/17/21 02/18/21 Range/Units 17:43 18:05 05:35 WBC 2.4 L (4.5-11.0) K/uL RBC 4.13 L (4.30-5.90) M/uL Hgb 12.8 (12.0-15.0) g/dL Hct 37.8 L (40.0-54.0) % MCV 92 (80-98) fL MCH 31 (27-31) pg MCHC 34 (32-36) % Plt Count 127 L (150-400) K/uL Neut % (Auto) 70.3 H (36-66) % Lymph % (Auto) 22.9 L (24-44) % [place] % (Auto) 6.4 H (2-6) % Eos % (Auto) 0.0 L (2-4) % Baso % (Auto) 0.4 (0-1) % D-Dimer, Quantitative (0.0-500.0) ng/mL Sodium (140-148) mmol/L Potassium (3.6-5.2) mmol/L Chloride (100-108) mmol/L Carbon Dioxide (21-32) mmol/L Anion Gap (5.0-14.0) mmol/L BUN (7-18) mg/dL Creatinine (0.8-1.3) mg/dL Est Cr Clr Drug Dosing mL/min Estimated GFR (MDRD) (>60) Glucose (74-106) mg/dL Calcium (8.5-10.1) mg/dL Total Bilirubin (0.2-1.0) mg/dL AST (15-37) U/L ALT (12-78) U/L Alkaline Phosphatase (46-116) U/L C-Reactive Protein (0.0-0.3) mg/dL NT-Pro-B Natriuret Pep (5-450) pg/mL Total Protein (6.4-8.2) g/dL Albumin (3.4-5.0) g/dL Globulin (2.3-3.5) g/dL Albumin/Globulin Ratio (1.2-2.2) Procalcitonin < 0.05 ng/mL Influenza Type A RNA Negative (NEGATIVE) RSV RNA (INAAT) Negative (NEGATIVE) Influenza Type B RNA Negative (NEGATIVE) SARS-CoV-2 RNA (OTF) Negative (NEGATIVE) SARS CoV-2 RNA Rapid OTF 02/18/21 Range/Units 05:35 WBC (4.5-11.0) K/uL RBC (4.30-5.90) M/uL Hgb (12.0-15.0) g/dL Hct (40.0-54.0) % MCV (80-98) fL MCH (27-31) pg MCHC (32-36) % Plt Count (150-400) K/uL Neut % (Auto) (36-66) % Lymph % (Auto) (24-44) % [place] % (Auto) (2-6) % Eos % (Auto) (2-4) % Baso % (Auto) (0-1) % D-Dimer, Quantitative (0.0-500.0) ng/mL Sodium 136 L (140-148) mmol/L Potassium 4.9 (3.6-5.2) mmol/L Chloride 100 (100-108) mmol/L Carbon Dioxide 26 (21-32) mmol/L Anion Gap 14.9 H (5.0-14.0) mmol/L BUN 12 (7-18) mg/dL Creatinine 0.9 (0.8-1.3) mg/dL Est Cr Clr Drug Dosing 80.85 mL/min Estimated GFR (MDRD) > 60 (>60) Glucose 135 H (74-106) mg/dL Calcium 8.1 L (8.5-10.1) mg/dL Total Bilirubin (0.2-1.0) mg/dL AST (15-37) U/L ALT (12-78) U/L Alkaline Phosphatase (46-116) U/L C-Reactive Protein (0.0-0.3) mg/dL NT-Pro-B Natriuret Pep (5-450) pg/mL Total Protein (6.4-8.2) g/dL Albumin (3.4-5.0) g/dL Globulin (2.3-3.5) g/dL Albumin/Globulin Ratio (1.2-2.2) Procalcitonin ng/mL Influenza Type A RNA (NEGATIVE) RSV RNA (INAAT) (NEGATIVE) Influenza Type B RNA (NEGATIVE) SARS-CoV-2 RNA (OTF) (NEGATIVE) SARS CoV-2 RNA Rapid OTF Med Orders - Current: Current Medications Acetaminophen (Acetaminophen 325 Mg Tab) 650 mg PO Q4H PRN PRN Reason: Pain (Mild 1-3)/fever Albuterol (Albuterol 0.083% 2.5 Mg/3 Ml Neb Soln) 2.5 mg NEB Q4H PRN PRN Reason: Shortness Of Breath/wheezing Albuterol/Ipratropium (Albuterol/Ipratropium 3.0-0.5 Mg/3 Ml Neb Soln) 3 ml NEB QID PRN PRN Reason: Shortness Of Breath/wheezing Artificial Tears (Hypromellose 0.3% Ophth Soln 15 Ml Bottle) 0 ml EYEBOTH ASDIRECTED PRN PRN Reason: DRY EYES Bisacodyl (Bisacodyl 5 Mg Tab) 5 mg PO DAILY PRN PRN Reason: Constipation Docusate Sodium (Docusate Sodium 100 Mg Cap) 100 mg PO BID PRN PRN Reason: Constipation Enoxaparin Sodium (Enoxaparin 40 Mg/0.4 Ml Syringe) 40 mg SUBCUT DAILY [facility] Last Admin: 02/18/21 08:59 Dose: 40 mg Documented by: Gabapentin (Gabapentin 300 Mg Cap) 900 mg PO TID [facility] Last Admin: 02/18/21 08:59 Dose: 900 mg Documented by: Sodium Chloride (Normal Saline) 1,000 mls @ 125 mls/hr IV ASDIRECTED [facility] Last Admin: 02/18/21 08:45 Dose: 125 mls/hr Documented by: Levofloxacin/Dextrose 750 mg/ (Premix) 150 mls @ 100 mls/hr IV Q24H [facility] Ceftriaxone Sodium 1 gm/ (Sodium Chloride) 50 mls @ 200 mls/hr IV Q24H [facility] Methylprednisolone Sodium Succinate (Methylprednisolone Sodium Succinate 40 Mg/1 Ml Sdv) 40 mg IVPUSH Q6H [facility] Last Admin: 02/18/21 05:50 Dose: 40 mg Documented by: Morphine Sulfate (Morphine 2 Mg/Ml Syringe) 2 mg IVPUSH Q2H PRN PRN Reason: Pain (severe 7-10) Morphine Sulfate (Morphine 30 Mg Tab.Er) 30 mg PO BID [facility] Last Admin: 02/18/21 08:58 Dose: 30 mg Documented by: Ondansetron HCl (Ondansetron 4 Mg Tab.Dis) 4 mg PO Q6H PRN PRN Reason: Nausea able to take PO Oxycodone HCl (Oxycodone 5 Mg Tab) 10 mg PO Q6H PRN PRN Reason: Pain Last Admin: 02/18/21 00:28 Dose: 10 mg Documented by: Pantoprazole Sodium (Pantoprazole 40 Mg Tab.Cr) 40 mg PO BEDTIME [facility] Prednisolone Acetate (Prednisolone Acetate 1% Ophth Susp 5 Ml Bottle) 0 ml EYELF QID [facility] Last Admin: 02/18/21 09:02 Dose: Not Given Documented by: Senna/Docusate Sodium (Docusate Sodium/Sennosides 50-8.6 Mg Tab) 1 tab PO BED TIME [facility] Zolpidem Tartrate (Zolpidem 5 Mg Tab) 10 mg PO BEDTIME PRN PRN Reason: Sleep Last Admin: 02/18/21 00:28 Dose: 10 mg Documented by: Discontinued Medications Albuterol (Albuterol 0.083% 2.5 Mg/3 Ml Neb Soln) 2.5 mg NEB ONETIME ONE Stop: 02/17/21 15:09 Last Admin: 02/17/21 15:24 Dose: 2.5 mg Documented by: Sodium Chloride (Normal Saline) 100 mls @ 4 mls/sec IV ASDIRECTED [facility] Last Admin: 02/17/21 19:32 Dose: 4 mls/sec Documented by: Levofloxacin/Dextrose 750 mg/ (Premix) 150 mls @ 100 mls/hr IV ONETIME ONE Stop: 02/17/21 22:31 Last Admin: 02/17/21 21:22 Dose: 100 mls/hr Documented by: Ceftriaxone Sodium 1 gm/ (Sodium Chloride) 50 mls @ 200 mls/hr IV NOW ONE Stop: 02/17/21 23:44 Last Admin: 02/18/21 00:27 Dose: 200 mls/hr Documented by: Iopamidol (Iopamidol 755 Mg/Ml 100 Ml Bottle) 100 ml IV . DIRECTED [facility] Last Admin: 02/17/21 19:32 Dose: 100 ml Documented by: Methylprednisolone Sodium Succinate (Methylprednisolone Sodium Succinate 40 Mg/1 Ml Sdv) 40 mg IVPUSH NOW ONE Stop: 02/17/21 23:31 Last Admin: 02/18/21 00:27 Dose: 40 mg Documented by: Morphine Sulfate (Morphine 15 Mg Tab) 30 mg PO ONETIME STA Stop: 02/17/21 18:20 Last Admin: 02/17/21 18:31 Dose: 30 mg Documented by: Oxycodone HCl (Oxycodone 5 Mg Tab) 10 mg PO ONETIME ONE Stop: 02/17/21 17:43 Last Admin: 02/17/21 18:07 Dose: 10 mg Documented by: Pantoprazole Sodium (Pantoprazole 40 Mg Vial) 40 mg IV BEDTIME [facility] Last Admin: 02/18/21 00:28 Dose: 40 mg Documented by: Prednisolone Acetate (Prednisolone Acetate 1% Ophth Susp 5 Ml Bottle) 1 ml EYELF QID [facility] Last Admin: 02/18/21 05:50 Dose: 1 applic Documented by: - Exam Quality Assessment: Denies: Supplemental Oxygen General: Reports: Alert, Oriented, Cooperative, No Acute Distress Lungs: Reports: Normal Respiratory Effort, Crackles (Rare right lower lung) Cardiovascular: Reports: Regular Rate, Regular Rhythm Extremities: No Pedal Edema
[2021-02-18] MEDS ORDERED: cefTRIAXone 1 GM in Sodium Chloride 0.9% 50 ML IV SCH (21:00)
[2021-02-18] MEDS ORDERED: Levofloxacin/Dextrose 5%-Water 750 MG in Premix Bag 1 BAG IV SCH (21:00)
[2021-02-18] MEDS ORDERED: Pantoprazole 40 MG Tab.CR PO SCH (21:00)
== END 2021-02-18 12:35 | disposition home or self-care (01) | DRG 193 ==
LOC: JP.ED 13:54 → JP.MS 22:03
PROVIDERS: ADMIT Internal Medicine; ATTEND Internal Medicine
DX: J15.9 Unspecified bacterial pneumonia (principal); R09.02 Hypoxemia; J96.01 Acute respiratory failure with hypoxia; D69.6 Thrombocytopenia, unspecified; D72.819 Decreased white blood cell count, unspecified; Z20.822 Contact with and (suspected) exposure to COVID-19; H54.7 Unspecified visual loss; G89.29 Other chronic pain; M54.9 Dorsalgia, unspecified; G62.9 Polyneuropathy, unspecified; G47.00 Insomnia, unspecified; Z98.49 Cataract extraction status, unspecified eye; Z90.89 Acquired absence of other organs; Z79.899 Other long term (current) drug therapy; Z88.1 Allergy status to other antibiotic agents; Z87.442 Personal history of urinary calculi; Z86.010 Personal history of colon polyps; Z90.49 Acquired absence of other specified parts of digestive tract
CPT/HCPCS: 0241U; 36415; 71046; 71275; 80048; 80053; 83880; 84145; 85025; 85379; 86140; 87040; 94640; 96365; 99285-25; A9270-GY; C9113; J0696; J1650; J1956; J2920; J7030; Q9967; U0002

== ENCOUNTER 2021-10-28 09:50 | Emergency (ER) | payer MEDICARE, OTHER ==
[2021-10-28] MEDS ORDERED: Ondansetron 4 MG Tab.DIS PO ONE (10:17)
[2021-10-28] MEDS ORDERED: cefTRIAXone 1 GM Vial IM ONE (13:31)
[2021-10-28] MEDS ORDERED: Lidocaine 1% PF 2 ML SDV IV ONE (13:38)
== END 2021-10-28 14:10 | disposition home or self-care (01) ==
LOC: JP.ED 09:50
DX: N12 Tubulo-interstitial nephritis, not specified as acute or chronic (principal); N39.41 Urge incontinence; D72.9 Disorder of white blood cells, unspecified; Z79.899 Other long term (current) drug therapy; Z91.030 Bee allergy status
CPT/HCPCS: 36415; 80048; 81001; 84145; 85025; 86140; 87086; 87186; 96372; 99283; 99284; J0696; Q0162

== ENCOUNTER → 2024-02-06 | Day surgery (SDC) | payer MEDICARE, OTHER ==
[~2024-02-06] MED LIST: Propofol 200 MG/20 ML SDV ONE; fentaNYL 50 MCG/ML SDV ONE
[2024-02-06] MEDS: Sodium Chloride 0.9% 1,000 ML IV SCH (15:53)
== END ==
LOC: JP.SDS 06:41
PROVIDERS: ATTEND Surgery
DX: Z12.11 Encounter for screening for malignant neoplasm of colon (principal); D12.6 Benign neoplasm of colon, unspecified; K57.30 Diverticulosis of large intestine without perforation or abscess without bleeding
CPT/HCPCS: 00811; 45385; 88305; J2704; J3010; J7030

== ENCOUNTER 2024-10-19 14:21 | Emergency (ER) | payer MEDICARE, OTHER ==
[2024-10-19] MEDS: Ketorolac 30 MG/ML SDV IVPUSH ONE (15:36)
== END 2024-10-19 17:20 | disposition home or self-care (01) ==
LOC: JP.ED 14:21
DX: S43.102A Unspecified dislocation of left acromioclavicular joint, initial encounter (principal); S20.212A Contusion of left front wall of thorax, initial encounter; Z88.8 Allergy status to other drugs, medicaments and biological substances; Z79.899 Other long term (current) drug therapy; Z90.49 Acquired absence of other specified parts of digestive tract; W00.0XXA Fall on same level due to ice and snow, initial encounter
CPT/HCPCS: 70450; 71045; 73020; 73501; 96374; 99284; J1885; 99282